=== PATIENT | female | born 1995 | race Caucasian/White ===

== ENCOUNTER 2019-03-08 16:29 | Emergency (ER) | payer SELFPAY ==
[~2019-03-08] VITALS: Ht 161.3 cm; Wt 59.0 kg
[2019-03-08 16:33] VITALS: BP 111/59
--- NOTE | 2019-03-08 17:31 | NUR ---
PT AMBULATED TO ER BED 11
[2019-03-08 17:37] VITALS: BP 111/59
--- NOTE | 2019-03-08 17:38 | NUR ---
23 Y/O F C/O RASH X 1 DAY THAT IS RED FLAT AREAS, NOT RAISED OR DRAINING. PT STATES RASH STARTED YESTERDAY ON HER HANDS AND HAS SPREAD TO THE REAST OF HER BODY. PT STATES RASH ITCHES, NO PAIN. DENIES CHANGES TO SOAP, LOTIONS. PT STATES SHE HAS ALLERGIES TO FOOD, HAS NOT EATEN THE FOODS THAT SHE IS ALLERGIC TO, SEAFOOD, RED MEAT. NO N/V FEVER, HAS NOT TRAVELED OUT OF THE COUNTRY IN THE LAST 30 DAYS. PT POSITIONED FOR COMFORT. STATES VACCINES CURRENT.
--- NOTE | 2019-03-08 17:39 | NUR ---
PA ALVARES EVALUATING PT AT BEDSIDE
[2019-03-08] MEDS ORDERED: predniSONE 20 MG TAB PO ONE (17:50)
[2019-03-08] MEDS ORDERED: FAMOTIDINE 20 MG TAB PO ONE (17:50)
--- NOTE | 2019-03-08 18:03 | NUR ---
PT RESTING COMFORTABL, GAVE PRESCRIBED MEDICATION TO PATIENT.
--- NOTE | 2019-03-08 18:24 | NUR ---
Patient discharged with v/s stable. Written and verbal after care instructions given and explained. Patient alert, oriented and verbalized understanding of instructions. Ambulatory with steady gait. All questions addressed prior to discharge. ID band removed. Patient advised to follow up with PMD. Rx of PREDNISONE, EPI-PEN, BENEDRYL given. Patient educated on indication of medication including possible reaction and side effects. Opportunity to ask questions provided and answered.
== END 2019-03-08 18:24 | disposition home or self-care (01) ==
LOC: MED 16:29
DX: L23.89 Allergic contact dermatitis due to other agents (principal); T78.49XA Other allergy, initial encounter; T38.0X5A Adverse effect of glucocorticoids and synthetic analogues, initial encounter; Y92.89 Other specified places as the place of occurrence of the external cause; Y99.8 Other external cause status
CPT/HCPCS: 99283; J7512